=== PATIENT | male | born 1955 | race Caucasian/White ===

== ENCOUNTER 2021-06-15 07:42 | Inpatient (IN) | payer BLACK LUNG, MEDICARE ==
[~2021-06-15] VITALS: Ht 170.2 cm; Wt 120.9 kg
[2021-06-15 08:23] LABS: HEMOGLOBIN 13.6 gm/dl (14.0-17.5); RED BLOOD COUNT 4.85 M/UL (4.20-5.50); WHITE BLOOD COUNT 10.4 K/UL (4.5-11.0)
[2021-06-15 08:48] LABS: BUN/CREATININE RATIO 15 (0-10)
[2021-06-15] MEDS ORDERED: XANAX0.5 MG PO (11:10)
[2021-06-15] MEDS ORDERED: PROAIR DIGIHAL90 MCG INH (11:10)
[2021-06-15] MEDS ORDERED: CARVEDILOL25 MG PO (11:11)
[2021-06-15] MEDS ORDERED: ELIQUIS5 MG PO (11:11)
[2021-06-15] MEDS ORDERED: DRISDOL1250 MCG PO (11:12)
[2021-06-15] MEDS ORDERED: ARTHRITIS PAIN100 GM TOP (11:12)
[2021-06-15] MEDS ORDERED: HYDROCODON-ACE1 EAC6 PO (11:13)
[2021-06-15] MEDS ORDERED: HYDROCHLOROTHIA25 MG PO (11:13)
[2021-06-15] MEDS ORDERED: GABAPENTIN600 MG PO (11:13)
[2021-06-15] MEDS ORDERED: TOUJEO MAX300 UNIT/1 INJ (11:14)
[2021-06-15] MEDS ORDERED: NAMENDA5 MG PO (11:15)
[2021-06-15] MEDS ORDERED: OMEPRAZOLE40 MG PO (11:15)
[2021-06-15] MEDS ORDERED: LEVOTHYROXINE175 MCG PO (11:15)
[2021-06-15] MEDS ORDERED: FENOFIBRATE54 MG PO (11:19)
[2021-06-15] MEDS ORDERED: BYDUREON BCISE SQ (11:19)
[2021-06-15] MEDS ORDERED: FAMOTIDINE20 MG PO (11:19)
[2021-06-15] MEDS ORDERED: FLONASE ALLER15.8 ML (11:20)
[2021-06-15] MEDS ORDERED: INSULIN LI100 UNIT/2 INJ (11:21)
[2021-06-15] MEDS ORDERED: SERTRALINE HCL50 MG PO (11:22)
[2021-06-15] MEDS ORDERED: IPRAT-ALBUT 0.5-3 ML NEB (11:22)
[2021-06-15] MEDS ORDERED: PROBENECID500 MG PO (11:22)
[2021-06-15] MEDS ORDERED: TAMSULOSIN HCL0.4 MG PO (11:23)
[2021-06-16 04:01] LABS: HEMOGLOBIN 11.9 gm/dl (14.0-17.5); WHITE BLOOD COUNT 9.7 K/UL (4.5-11.0)
[2021-06-16 04:05] LABS: RED BLOOD COUNT 4.16 M/UL (4.20-5.50)
[2021-06-16 04:33] LABS: BUN/CREATININE RATIO 15 (0-10)
[2021-06-17 03:57] LABS: HEMOGLOBIN 11.1 gm/dl (14.0-17.5); RED BLOOD COUNT 3.92 M/UL (4.20-5.50)
[2021-06-17 04:08] LABS: WHITE BLOOD COUNT 5.8 K/UL (4.5-11.0)
[2021-06-17 04:15] LABS: BUN/CREATININE RATIO 20 (0-10)
[2021-06-17 12:38] LABS: BODY FLUID SOURCE ASCITES; MONONUCLEAR CELLS 96 (75-100); POLYMORPHONUCLEAR % 4 (0-25); RBC (AUTOMATED) 300 (0-100000); WBC (AUTOMATED) 250 (0-500)
[2021-06-17 12:48] LABS: TOTAL PROTEIN, BODY FLUID 2.1 gm/dL
[2021-06-18 03:38] LABS: HEMOGLOBIN 11.6 gm/dl (14.0-17.5); RED BLOOD COUNT 4.13 M/UL (4.20-5.50)
[2021-06-18 03:53] LABS: WHITE BLOOD COUNT 4.1 K/UL (4.5-11.0)
[2021-06-19 03:45] LABS: HEMOGLOBIN 12.8 gm/dl (14.0-17.5); RED BLOOD COUNT 4.53 M/UL (4.20-5.50); WHITE BLOOD COUNT 4.1 K/UL (4.5-11.0)
[2021-06-19 15:43] LABS: MONONUCLEAR CELLS 91.4 (75-100); POLYMORPHONUCLEAR % 8.6 (0-25); RBC (AUTOMATED) 700 (0-100000); WBC (AUTOMATED) 290 (0-500)
[2021-06-19 16:40] LABS: LDH, BODY FLUID 106 U/L; TOTAL PROTEIN, BODY FLUID 3.3 gm/dL
[2021-06-20 04:58] LABS: BUN/CREATININE RATIO 25 (0-10)
[2021-06-20] MEDS ORDERED: ASPIRIN EC81 MG PO (09:48)
[2021-06-20] MEDS ORDERED: CHRONULAC20 GM/30 M PO (09:48)
[2021-06-20] MEDS ORDERED: LASIX20 MG PO (09:50)
[2021-06-20] MEDS ORDERED: ALDACTONE50 MG PO (09:50)
[2021-06-20] MEDS ORDERED: PROAIR DIGIHAL90 MCG INH (09:58)
== END 2021-06-20 13:54 | disposition home or self-care (01) | DRG 432 ==
LOC: ER1 07:42 → PROG CARE 09:17 → CDU 09:17 → PROG CARE 17:42
PROVIDERS: Emergency Medicine; Internal Medicine; Physician Assistant; ADMIT Internal Medicine
PROC: 0W9G3ZZ Drainage of Peritoneal Cavity, Percutaneous Approach (ICD-10-PCS; principal; 2021-06-17)
PROC: BW40ZZZ Ultrasonography of Abdomen (ICD-10-PCS; 2021-06-17)
PROC: 0W993ZZ Drainage of Right Pleural Cavity, Percutaneous Approach (ICD-10-PCS; 2021-06-19)
PROC: BB4BZZZ Ultrasonography of Pleura (ICD-10-PCS; 2021-06-19)
DX: K74.60 Unspecified cirrhosis of liver (principal); I50.43 Acute on chronic combined systolic (congestive) and diastolic (congestive) heart failure; Z20.822 Contact with and (suspected) exposure to COVID-19; J96.21 Acute and chronic respiratory failure with hypoxia; J90 Pleural effusion, not elsewhere classified; J94.8 Other specified pleural conditions; N17.9 Acute kidney failure, unspecified; R18.8 Other ascites; J44.1 Chronic obstructive pulmonary disease with (acute) exacerbation; I48.20 Chronic atrial fibrillation, unspecified; J98.11 Atelectasis; Z68.41 Body mass index [BMI] 40.0-44.9, adult; I11.0 Hypertensive heart disease with heart failure; E66.01 Morbid (severe) obesity due to excess calories; K21.9 Gastro-esophageal reflux disease without esophagitis; F17.210 Nicotine dependence, cigarettes, uncomplicated; K76.9 Liver disease, unspecified; J60 Coalworker's pneumoconiosis; N40.0 Benign prostatic hyperplasia without lower urinary tract symptoms; I87.8 Other specified disorders of veins; E78.5 Hyperlipidemia, unspecified; E03.9 Hypothyroidism, unspecified; G47.33 Obstructive sleep apnea (adult) (pediatric); G89.29 Other chronic pain; E11.51 Type 2 diabetes mellitus with diabetic peripheral angiopathy without gangrene; R21 Rash and other nonspecific skin eruption; K75.81 Nonalcoholic steatohepatitis (NASH); I48.91 Unspecified atrial fibrillation; Z79.01 Long term (current) use of anticoagulants; Z86.73 Personal history of transient ischemic attack (TIA), and cerebral infarction without residual deficits; Z79.4 Long term (current) use of insulin; Z79.82 Long term (current) use of aspirin
CPT/HCPCS: ECHO; 0240U; 36415; 36600; 71045; 76705; 80053; 82550; 82553; 82803; 82945; 82962; 83605; 83615; 83735; 83874; 83880; 83986; 84100; 84157; 84484; 85025; 85027; 85610; 87040; 87070; 87205; 89051; 93005; 93306; 94640; 94664; 94760; 97116-GP-CQ; 97162; 97530; 97530-GP-CQ; 99285; C1729; J0696; J1200; J1205; J1940; J2405; P9047

== ENCOUNTER → 2021-07-09 | Outpatient (CLI) | payer BLACK LUNG, MEDICARE ==
[~2021-07-09] MED LIST: ALDACTONE50 MG PO; ARTHRITIS PAIN100 GM TOP; ASPIRIN EC81 MG PO; BYDUREON BCISE SQ; CARVEDILOL25 MG PO; CHRONULAC20 GM/30 M PO; DRISDOL1250 MCG PO; ELIQUIS5 MG PO; FAMOTIDINE20 MG PO; FENOFIBRATE54 MG PO; FLONASE ALLER15.8 ML; GABAPENTIN600 MG PO; HYDROCHLOROTHIA25 MG PO; HYDROCODON-ACE1 EAC6 PO; INSULIN LI100 UNIT/2 INJ; IPRAT-ALBUT 0.5-3 ML NEB; LASIX20 MG PO; LEVOTHYROXINE175 MCG PO; NAMENDA5 MG PO; OMEPRAZOLE40 MG PO; PROAIR DIGIHAL90 MCG INH; PROBENECID500 MG PO; SERTRALINE HCL50 MG PO; TAMSULOSIN HCL0.4 MG PO; TOUJEO MAX300 UNIT/1 INJ; XANAX0.5 MG PO
[2021-07-10 06:09] LABS: CALCIUM, SERUM 9.4 mg/dL (8.6-10.2); CREATININE, SERUM 1.38 mg/dL (0.76-1.27); POTASSIUM, SERUM 4.4 mmol/L (3.5-5.2)
== END ==
LOC: LAB 12:59 → EDBD 12:59
PROVIDERS: Internal Medicine Gastroenterology
DX: R94.5 Abnormal results of liver function studies (principal)
CPT/HCPCS: 36415; 80048

== ENCOUNTER → 2021-07-25 | Outpatient (CLI) | payer BLACK LUNG, MEDICARE | LOC: RAD 13:19 | DX: R06.00 Dyspnea, unspecified (principal); R91.8 Other nonspecific abnormal finding of lung field | CPT/HCPCS: 71046 ==

== ENCOUNTER → 2021-08-27 | Outpatient (CLI) | payer BLACK LUNG, MEDICARE | LOC: KOH-I 12:51 | DX: N18.30 Chronic kidney disease, stage 3 unspecified (principal); R16.1 Splenomegaly, not elsewhere classified | CPT/HCPCS: 76775 ==

== ENCOUNTER 2021-12-21 11:31 | Inpatient (IN) | payer BLACK LUNG, MEDICARE ==
[~2021-12-21] VITALS: Ht 172.7 cm; Wt 101.6 kg
[~2021-12-21 11:31] MED LIST changes: -INSULIN LI100 UNIT/2 INJ; +INSULIN LI100 UNIT/2 SQ; +IPRAT-ALBUT 0.5-3 ML INH; -IPRAT-ALBUT 0.5-3 ML NEB; -TOUJEO MAX300 UNIT/1 INJ; +TOUJEO MAX300 UNIT/1 SQ
[2021-12-21 12:12] LABS: HEMOGLOBIN 15.8 gm/dl (14.0-17.5); RED BLOOD COUNT 5.23 M/UL (4.20-5.50); WHITE BLOOD COUNT 9.6 K/UL (4.5-11.0)
[2021-12-21 12:34] LABS: BUN/CREATININE RATIO 24 (0-10)
[2021-12-21] MEDS ORDERED: PROAIR HFA8.5 GM INH (13:07)
[2021-12-21] MEDS ORDERED: FUROSEMIDE20 MG PO (13:09)
[2021-12-21] MEDS ORDERED: LACTULOSE10 GM/15 M PO (13:15)
[2021-12-21] MEDS ORDERED: ALDACTONE50 MG PO (13:16)
[2021-12-21] MEDS ORDERED: VOLTAREN ARTHRI20 GM TOP (13:17)
[2021-12-21] MEDS ORDERED: OXYCODONE HCL10 MG PO (13:17)
[2021-12-22 07:03] LABS: HEMOGLOBIN 15.6 gm/dl (14.0-17.5); RED BLOOD COUNT 5.16 M/UL (4.20-5.50); WHITE BLOOD COUNT 8.6 K/UL (4.5-11.0)
[2021-12-22 07:22] LABS: BUN/CREATININE RATIO 26 (0-10)
[2021-12-23 08:08] LABS: HEMOGLOBIN 13.1 gm/dl (14.0-17.5); RED BLOOD COUNT 4.38 M/UL (4.20-5.50); WHITE BLOOD COUNT 5.3 K/UL (4.5-11.0)
[2021-12-26] MEDS ORDERED: VALACYCLOVIR1000 MG PO (14:01)
== END 2021-12-26 15:53 | disposition home or self-care (01) | DRG 308 ==
LOC: ER1 11:31 → CDU 15:55 → PROG CARE 15:55
PROVIDERS: Internal Medicine Infectious Disease; Student in an Organized Health Care Education/Training Program; ADMIT Internal Medicine
DX: I48.20 Chronic atrial fibrillation, unspecified (principal); I50.33 Acute on chronic diastolic (congestive) heart failure; J96.11 Chronic respiratory failure with hypoxia; Z20.822 Contact with and (suspected) exposure to COVID-19; B02.9 Zoster without complications; E03.9 Hypothyroidism, unspecified; K21.9 Gastro-esophageal reflux disease without esophagitis; E78.5 Hyperlipidemia, unspecified; E66.01 Morbid (severe) obesity due to excess calories; N40.0 Benign prostatic hyperplasia without lower urinary tract symptoms; I11.0 Hypertensive heart disease with heart failure; E11.40 Type 2 diabetes mellitus with diabetic neuropathy, unspecified; K72.90 Hepatic failure, unspecified without coma; J44.9 Chronic obstructive pulmonary disease, unspecified; Z79.4 Long term (current) use of insulin; Z86.73 Personal history of transient ischemic attack (TIA), and cerebral infarction without residual deficits; Z99.81 Dependence on supplemental oxygen; Z83.6 Family history of other diseases of the respiratory system; Z82.49 Family history of ischemic heart disease and other diseases of the circulatory system; Z90.49 Acquired absence of other specified parts of digestive tract; Z87.891 Personal history of nicotine dependence
CPT/HCPCS: 36415; 71045; 80048; 80053; 81001; 82140; 82550; 82553; 82962; 83735; 83880; 84484; 85025; 85027; 87086; 93005; 94640; 94664; 94760; 96374; 96375; 96376; 99285; J0133; J0360; J1630; J2270; J2405; J3486; J7040

== ENCOUNTER 2021-12-30 12:57 | Inpatient (IN) | payer BLACK LUNG, MEDICARE ==
[~2021-12-30] VITALS: Ht 172.7 cm; Wt 105.0 kg
[~2021-12-30 12:57] MED LIST changes: +FUROSEMIDE20 MG PO; +LACTULOSE10 GM/15 M PO; +OXYCODONE HCL10 MG PO; +PROAIR HFA8.5 GM INH; +VALACYCLOVIR1000 MG PO; +VOLTAREN ARTHRI20 GM TOP
[2021-12-30 13:52] LABS: RED BLOOD COUNT 4.53 M/UL (4.20-5.50); WHITE BLOOD COUNT 6.6 K/UL (4.5-11.0)
[2021-12-30 14:48] LABS: BUN/CREATININE RATIO 17 (0-10)
[2021-12-31 06:54] LABS: HEMOGLOBIN 13.9 gm/dl (14.0-17.5); RED BLOOD COUNT 4.73 M/UL (4.20-5.50); WHITE BLOOD COUNT 5.7 K/UL (4.5-11.0)
[2021-12-31 07:21] LABS: BUN/CREATININE RATIO 15 (0-10)
[2022-01-01 06:16] LABS: HEMOGLOBIN 14.9 gm/dl (14.0-17.5); RED BLOOD COUNT 4.84 M/UL (4.20-5.50)
[2022-01-01 06:22] LABS: WHITE BLOOD COUNT 7.2 K/UL (4.5-11.0)
[2022-01-01 06:44] LABS: BUN/CREATININE RATIO 15 (0-10)
[2022-01-03 08:17] LABS: HEMOGLOBIN 14.5 gm/dl (14.0-17.5); RED BLOOD COUNT 4.97 M/UL (4.20-5.50)
[2022-01-06 06:33] LABS: HEMOGLOBIN 13.1 gm/dl (14.0-17.5); WHITE BLOOD COUNT 5.1 K/UL (4.5-11.0)
[2022-01-06 06:34] LABS: RED BLOOD COUNT 4.38 M/UL (4.20-5.50)
[2022-01-06] MEDS ORDERED: LACTULOSE10 GM/15 M PO (13:53)
[2022-01-06] MEDS ORDERED: XIFAXAN 200 MG200 MG PO (14:10)
[2022-01-06] MEDS ORDERED: XIFAXAN 550 MG550 MG PO (14:18)
== END 2022-01-06 15:30 | disposition home health service (06) | DRG 432 ==
LOC: ER1 12:57 → CDU 16:41 → MED SURG 4 16:41
PROVIDERS: Emergency Medicine; Internal Medicine Infectious Disease; Physician Assistant; ADMIT Internal Medicine
DX: K74.60 Unspecified cirrhosis of liver (principal); K72.00 Acute and subacute hepatic failure without coma; I50.33 Acute on chronic diastolic (congestive) heart failure; I13.0 Hypertensive heart and chronic kidney disease with heart failure and stage 1 through stage 4 chronic kidney disease, or unspecified chronic kidney disease; J96.11 Chronic respiratory failure with hypoxia; I48.20 Chronic atrial fibrillation, unspecified; K75.81 Nonalcoholic steatohepatitis (NASH); N18.30 Chronic kidney disease, stage 3 unspecified; E66.01 Morbid (severe) obesity due to excess calories; N40.0 Benign prostatic hyperplasia without lower urinary tract symptoms; K21.9 Gastro-esophageal reflux disease without esophagitis; E11.22 Type 2 diabetes mellitus with diabetic chronic kidney disease; E03.9 Hypothyroidism, unspecified; E78.5 Hyperlipidemia, unspecified; G83.21 Monoplegia of upper limb affecting right dominant side; B02.9 Zoster without complications; J44.9 Chronic obstructive pulmonary disease, unspecified; R53.81 Other malaise; Z86.73 Personal history of transient ischemic attack (TIA), and cerebral infarction without residual deficits; Z79.82 Long term (current) use of aspirin; Z79.899 Other long term (current) drug therapy; Z79.01 Long term (current) use of anticoagulants; Z68.35 Body mass index [BMI] 35.0-35.9, adult
CPT/HCPCS: ECHO; 36415; 36600; 70450; 70551; 71045; 73218; 80048; 80053; 80307; 81001; 82140; 82533; 82607; 82803; 82962; 83605; 83690; 83735; 83880; 84439; 84443; 84484; 85025; 85610; 86140; 87086; 93005; 93306; 94640; 94664; 94760; 97116-GP-CQ; 97161; 97166; 97530; 97530-GP-CQ; 97535; 99285; G0480; J1940